=== PATIENT | male | born 1955 | race Caucasian/White ===

== ENCOUNTER 2022-01-24 07:47 | Outpatient (REF) | payer MEDICARE, SELFPAY ==
[2022-01-24 11:14] LABS: MANUAL DIFF FLAG NO
[2022-01-24 11:21] LABS: Appearance Urine Clear; Color Urine Yellow; Glucose Urine UA Negative (Negative); Leukocyte Esterase Urine Negative (Negative); Nitrite Urine Negative (Negative); Urine Blood Negative (Negative); Urine Ketones Negative (Negative); Urine Protein Negative (Neg-Trace)
[2022-01-24 11:29] LABS: Basophils Percent Auto 0.4 % (0-2); Eosinophils Absolute Auto 0.1 X10*3/uL (0.0-0.4); Eosinophils Percent Auto 1.2 % (0-4); Hematocrit 41.1 % (42.0-52.0); Hemoglobin 14.1 g/dl (14.0-18.0); Imm Gran Abs Auto 0.01 X10*3/uL (0.00-0.03); Imm Gran Pct Auto 0.2 % (0.0-0.4); Lymphocytes Percent Auto 40.3 % (20-40); Mean Corpuscular HGB Conc 34.3 g/dl (31.0-36.0); Mean Corpuscular Hemoglobin 31.3 pg (27.0-33.0); Mean Corpuscular Volume 91.3 fL (80.0-98.0); Mean Platelet Volume 9.3 fL (9.4-12.4); Monocytes Absolute Auto 0.5 X10*3/uL (0.1-1.2); Neutrophils Absolute Auto 2.4 x10*3/uL (2.0-8.3); Neutrophils Percent Auto 47.9 % (45-73); Platelet Count 236 X10*3/uL (160-400); Red Cell Distribution Width 12.5 % (11.0-16.0)
[2022-01-24 11:59] LABS: Creatinine Urine 65.45 mg/dL; Microalbum/Creatinine Ratio Ur 22.9 ug/mg cr
[2022-01-24 12:03] LABS: Alanine Aminotransferase 18 U/L (0-40); Albumin Level 4.2 g/dL (3.5-5.0); Alkaline Phosphatase 48 U/L (39-117); Anion Gap 14 (12-20); Aspartate Amino Transferase 23 U/L (5-37); Bilirubin Total 0.7 mg/dL (0.0-1.0); Blood Urea Nitrogen 11 mg/dL (9-16); Carbon Dioxide 29 mmol/L (22-29); Chloride 102 mmol/L (96-108); Cholesterol 155 mg/dL; Estimated Glomerular Filt Rate > 60; Glucose Fasting 96 mg/dL (60-99); HDL Cholesterol 70 mg/dL; LDL Cholesterol Calculated 70 mg/dl; Potassium 4.6 mmol/L (3.3-5.1); Sodium 140 mmol/L (135-145); Total Protein 6.6 g/dL (6.5-8.0); Triglycerides 78 mg/dL
[2022-01-24 12:46] LABS: Prostate Specific Antigen Scr 6.93 ng/mL (<0.05-4.0)
== END 2022-01-24 07:48 | disposition home or self-care (01) ==
LOC: HO.WFDLDS 07:47
PROVIDERS: Visit Provider Family Medicine
DX: Z00.00 Encounter for general adult medical examination without abnormal findings (principal); I10 Essential (primary) hypertension; Z13.220 Encounter for screening for lipoid disorders; Z13.29 Encounter for screening for other suspected endocrine disorder; Z12.5 Encounter for screening for malignant neoplasm of prostate
CPT/HCPCS: 36415; 80053; 80061; 81003; 82043; 84153; 84443; 85025

== ENCOUNTER 2022-02-07 10:41 | Outpatient (REF) | payer MEDICARE, SELFPAY ==
[2022-02-07 13:48] LABS: MANUAL DIFF FLAG NO
[2022-02-07 14:02] LABS: Basophils Percent Auto 0.2 % (0-2); Eosinophils Absolute Auto 0.1 X10*3/uL (0.0-0.4); Eosinophils Percent Auto 1.6 % (0-4); Hematocrit 41.3 % (42.0-52.0); Hemoglobin 13.8 g/dl (14.0-18.0); Imm Gran Abs Auto 0.01 X10*3/uL (0.00-0.03); Imm Gran Pct Auto 0.2 % (0.0-0.4); Lymphocytes Absolute Auto 1.6 X10*3/uL (1.2-4.9); Lymphocytes Percent Auto 25.8 % (20-40); Mean Corpuscular HGB Conc 33.4 g/dl (31.0-36.0); Mean Corpuscular Hemoglobin 30.5 pg (27.0-33.0); Mean Corpuscular Volume 91.2 fL (80.0-98.0); Monocytes Absolute Auto 0.5 X10*3/uL (0.1-1.2); Monocytes Percent Auto 7.7 % (2-11); Neutrophils Absolute Auto 4.1 x10*3/uL (2.0-8.3); Neutrophils Percent Auto 64.5 % (45-73); Platelet Count 231 X10*3/uL (160-400); Red Blood Count 4.53 X10*6/uL (4.60-5.80); Red Cell Distribution Width 12.5 % (11.0-16.0); White Blood Count 6.3 X10*3/uL (4.8-10.8)
[2022-02-07 14:31] LABS: Iron 111 mcg/dL (45-160); Percent Iron Saturation 32 % (15-50); Total Iron Binding Capacity 350 mcg/dL (228-428); Unsaturated Iron Binding 239 ug/dL
[2022-02-07 15:24] LABS: Folate > 20.0 ng/mL (> or = 4.0); Vitamin B12 438 pg/mL (200-900)
== END 2022-02-07 10:42 | disposition home or self-care (01) ==
LOC: HO.WFDLDS 10:41
PROVIDERS: Visit Provider Family Medicine
DX: Z00.00 Encounter for general adult medical examination without abnormal findings (principal); E53.8 Deficiency of other specified B group vitamins; D64.9 Anemia, unspecified
CPT/HCPCS: 36415; 82607; 82746; 83540; 85025

== ENCOUNTER → 2022-05-25 14:52 | Outpatient (BNVA) | payer MEDICARE, SELFPAY | PROVIDERS: PCP Family Medicine; Visit Provider Urology | DX: R97.20 Elevated prostate specific antigen [PSA] (principal) | CPT/HCPCS: 99202 ==

== ENCOUNTER 2022-06-05 07:20 | Outpatient (REF) | payer MEDICARE, SELFPAY ==
[2022-06-05 11:18] LABS: MANUAL DIFF FLAG NO
[2022-06-05 11:29] LABS: Basophils Percent Auto 0.5 % (0-2); Eosinophils Absolute Auto 0.1 X10*3/uL (0.0-0.4); Eosinophils Percent Auto 1.8 % (0-4); Hemoglobin 14.3 g/dl (14.0-18.0); Imm Gran Abs Auto 0.01 X10*3/uL (0.00-0.03); Imm Gran Pct Auto 0.2 % (0.0-0.4); Immature Retic Fraction 7.8 % (2.3-13.4); Lymphocytes Absolute Auto 2.2 X10*3/uL (1.2-4.9); Lymphocytes Percent Auto 39.3 % (20-40); Mean Corpuscular Hemoglobin 31.2 pg (27.0-33.0); Mean Corpuscular Volume 91.7 fL (80.0-98.0); Mean Platelet Volume 9.3 fL (9.4-12.4); Monocytes Absolute Auto 0.5 X10*3/uL (0.1-1.2); Monocytes Percent Auto 8.3 % (2-11); Neutrophils Absolute Auto 2.8 x10*3/uL (2.0-8.3); Neutrophils Percent Auto 49.9 % (45-73); Platelet Count 223 X10*3/uL (160-400); RET ABN SCTR 1; Red Blood Count 4.58 X10*6/uL (4.60-5.80); Red Cell Distribution Width 12.7 % (11.0-16.0); Retic HGB Equivalent 36.9 pg (30.0-35.0); Reticulocytes Absolute 0.074 X10*6/uL (0.026-0.095); White Blood Count 5.6 X10*3/uL (4.8-10.8)
[2022-06-05 11:45] LABS: Iron 125 mcg/dL (45-160); Percent Iron Saturation 41 % (15-50); Total Iron Binding Capacity 307 mcg/dL (228-428); Unsaturated Iron Binding 182 ug/dL
[2022-06-05 12:29] LABS: Reticulocyte Percent 1.6 % (0.5-1.8)
== END 2022-06-05 07:21 | disposition home or self-care (01) ==
LOC: HO.WFDLDS 07:20
PROVIDERS: Visit Provider Family Medicine
DX: Z00.00 Encounter for general adult medical examination without abnormal findings (principal); D64.9 Anemia, unspecified
CPT/HCPCS: 36415; 83540; 85025; 85045

== ENCOUNTER 2022-11-07 07:20 | Outpatient (REF) | payer MEDICARE, SELFPAY ==
[2022-11-07 11:52] LABS: PSA,Total (Free>4and<10) 2.26 ng/mL (0.00-4.00)
== END 2022-11-07 07:21 | disposition home or self-care (01) ==
LOC: HO.WFDLDS 07:20
PROVIDERS: Visit Provider Urology
DX: Z12.5 Encounter for screening for malignant neoplasm of prostate (principal); R97.20 Elevated prostate specific antigen [PSA]
CPT/HCPCS: 36415; 84153

== ENCOUNTER 2022-11-27 09:24 | Outpatient (AMB) | payer MEDICARE, SELFPAY ==
--- NOTE | 2022-11-27 09:29 | MHC.OFFVIS ---
Intake Intake Visit Reasons: 6M PSA(set) Intake Note: Patient is present for Follow Up PSA Urology Med: Finasteride (Patient requests refill) Antibiotic Allergy:None Blood Thinner: None Pharmacy: [facility] Allergies latex Allergy (Intermediate, Verified 11/27/22 09:30) Itching morphine Allergy (Intermediate, Verified 11/27/22 09:30) altered mental states Seasonal Allergies Allergy (Mild, Verified 11/27/22 09:30) Runny Nose HPI HPI Comments History of Present Illness Details Julio Cesar is a pleasant male. He is a patient of Dr. Laboy. 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 PSA 02/03 7.0, 11/04 2.3 MAYKEL 3+ prostate soft 6 month follow-up [facility] Surgical History History of prostate biopsy History of skin graft Family History Mother Dementia Mental health disorder Social History Housing: House Alcohol intake: current Alcohol intake frequency: a few times a week Patient Tobacco Use Status: Former Tobacco user Quit Date: 1988 e-Cigarette/Vaping Use: Never Used Second Hand Smoke Exposure: No service: No Current occupational status: retired Current occupational exposures/hazards: No Cognitive needs: No Hearing needs: No Vision needs: Yes (reading glasses) Review of Systems Const Denies chills and Denies fever(s) Card Reports no additional complaints and Denies syncope Resp Denies cough GI Denies abdominal pain and Denies heartburn Reports as per HPI and Denies change in libido Neuro Denies syncope Psych Denies change in libido Endo Denies change in libido Physical Exam Const General: cooperative, healthy appearing, comfortable and no acute distress Orientation/consciousness: patient oriented x3 HEENT Face and sinus: Yes normal facial exam Mouth: moist mucous membranes Neck Neck: Yes normal visual inspection, Yes full ROM and Yes trachea midline Chest Chest palpation & inspection: normal inspection of the chest Resp Effort & Inspection: normal respiratory effort, able to speak in complete sentences and no respiratory distress GI Inspection: Yes normal to inspection Back/Spine/Pelvis Cervical Spine: normal cervical lordosis Thoracic/Lumbar Spine: thoracic and lumbar spine normal to inspection Skin General skin exam: no rashes or lesions noted Neuro General: patient oriented x3, gait normal, tone normal and moves all extremities Extrem General: Yes normal to inspection and Yes capillary refill normal Assessment & Plan Assessment & Plan (1) Elevated PSA: Comment: Prior biopsy Code(s): R97.20 - Elevated prostate specific antigen [PSA] (2) History of prostate biopsy: Comment: 4x Code(s): Z98.890 - Other specified postprocedural states (3) Bladder outlet obstruction: Code(s): N32.0 - Bladder-neck obstruction Plan Six month follow-up PSA Orders: Orders Prostate Specific Antigen 6 Months R97.20 - Elevated prostate specific antigen [PSA] Patient Instructions: Imaging studies, laboratory and physical exam results were discussed and reviewed in detail. No major barriers to patient understanding were identified. An opportunity to ask questions regarding the treatment plan was provided. All questions were answered. The patient expressed understanding and agreement with the above treatment plan. The patient is aware they should contact our office by phone for worsening of their current condition or the appearance of new urologic symptoms. Compliance is encouraged with any medications and followup testing that is ordered. It is a privilege to participate in the urologic care of your patient. If you have any questions or concerns regarding treatment for the above conditions, or other urologic issues, please do not hesitate to contact me. The office telephone contact is [phone]. This note is constructed using voice recognition software. While every effort has been made to ensure accuracy vice president of development errors may have been included. Yours sincerely, Dr Javed Ford MD, LEEANN [facility] - Urology Providers of Expert, Compassionate Care for the Genitourinary System Coding Level of Care Code Est Pt Level 3 (23794) Diagnoses Elevated PSA R97.20 History of prostate biopsy Z98.890 Bladder outlet obstruction N32.0
== END 2022-11-27 10:18 | disposition home or self-care (01) ==
PROVIDERS: Visit Provider Urology
DX: R97.20 Elevated prostate specific antigen [PSA] (principal); Z98.890 Other specified postprocedural states; N32.0 Bladder-neck obstruction
CPT/HCPCS: 99213

== ENCOUNTER → 2022-11-27 09:24 | Outpatient (BNVA) | payer MEDICARE, SELFPAY | PROVIDERS: Visit Provider Urology | DX: R97.20 Elevated prostate specific antigen [PSA] (principal); N32.0 Bladder-neck obstruction | CPT/HCPCS: 99212 ==

== ENCOUNTER 2023-01-31 08:08 | Outpatient (REF) | payer MEDICARE, SELFPAY ==
[2023-01-31 11:11] LABS: MANUAL DIFF FLAG NO
[2023-01-31 11:25] LABS: Basophils Percent Auto 0.5 % (0-2); Eosinophils Absolute Auto 0.2 X10*3/uL (0.0-0.4); Eosinophils Percent Auto 4.1 % (0-4); Hematocrit 40.9 % (42.0-52.0); Hemoglobin 13.9 g/dl (14.0-18.0); Imm Gran Abs Auto 0.02 X10*3/uL (0.00-0.03); Imm Gran Pct Auto 0.4 % (0.0-0.4); Lymphocytes Percent Auto 34.9 % (20-40); Mean Corpuscular Hemoglobin 31.5 pg (27.0-33.0); Mean Corpuscular Volume 92.7 fL (80.0-98.0); Mean Platelet Volume 9.7 fL (9.4-12.4); Monocytes Absolute Auto 0.6 X10*3/uL (0.1-1.2); Monocytes Percent Auto 10.9 % (2-11); Neutrophils Absolute Auto 2.8 x10*3/uL (2.0-8.3); Neutrophils Percent Auto 49.2 % (45-73); Platelet Count 225 X10*3/uL (160-400); Red Blood Count 4.41 X10*6/uL (4.60-5.80); Red Cell Distribution Width 12.6 % (11.0-16.0); White Blood Count 5.6 X10*3/uL (4.8-10.8)
[2023-01-31 12:25] LABS: Prostate Specific Antigen Scr 2.18 ng/mL (<0.05-4.0)
[2023-01-31 12:35] LABS: Anion Gap 11 (12-20)
[2023-01-31 12:40] LABS: Alanine Aminotransferase 23 U/L (0-40); Alkaline Phosphatase 47 U/L (39-117); Aspartate Amino Transferase 26 U/L (5-37); Bilirubin Total 0.6 mg/dL (0.0-1.0); Blood Urea Nitrogen 14 mg/dL (9-16); Calcium 9.2 mg/dL (8.4-10.2); Carbon Dioxide 27 mmol/L (22-29); Chloride 103 mmol/L (96-108); Cholesterol 165 mg/dL (<200); Estimated Glomerular Filt Rate > 60; Glucose Fasting 89 mg/dL (60-99); HDL Cholesterol 72 mg/dL (>40); LDL Cholesterol Calculated 82 mg/dL (<100); Potassium 4.3 mmol/L (3.3-5.1); Sodium 137 mmol/L (135-145); Total Protein 6.8 g/dL (6.5-8.0); Triglycerides 58 mg/dL (<150)
[2023-01-31 15:01] LABS: Creatinine Urine 50.58 mg/dL; Microalbum/Creatinine Ratio Ur 19.7 ug/mg cr (<30)
== END 2023-01-31 08:09 | disposition home or self-care (01) ==
LOC: HO.WFDLDS 08:08
PROVIDERS: Visit Provider Family Medicine
DX: Z00.00 Encounter for general adult medical examination without abnormal findings (principal); Z12.5 Encounter for screening for malignant neoplasm of prostate; I10 Essential (primary) hypertension
CPT/HCPCS: 36415; 80053; 80061; 81003; 82043; 82570; 84153; 84443; 85025

== ENCOUNTER 2023-02-12 08:48 | Outpatient (AMB) | payer MEDICARE, SELFPAY ==
[2023-02-12 08:52] VITALS: BP 138/78; PULSE 69; RESP 13; TEMP 37.1; O2SAT 100; BMI 28.0
--- NOTE | 2023-02-12 08:52 | A.OFFPC_ITS ---
Vital Signs 02/12/23 08:52 Height 5 ft 10 in Weight 195 lb 2 oz BMI 28.0 BP 138/78 Blood Pressure Location Lt brachial Position Sitting Respiration 13 Pulse 69 Pulse Source Pulse Oximeter Temp 98.7 F Temp Source Oral Pulse Oximetry (%) 100 Oxygen Delivery Method Room Air Intake Visit Reasons: Extended exam with f/u labs and health maint. Intake Note: Patient is here for an extended exam and shares he has no concerns at this time. Soot Blower Required: No Accompanied by: Self / Same As Patient Allergies latex Allergy (Intermediate, Verified 02/12/23 08:57) Itching morphine Allergy (Intermediate, Verified 02/12/23 08:57) altered mental states Seasonal Allergies Allergy (Mild, Verified 02/12/23 08:57) Runny Nose Tobacco use date assessed: 02/12/23 Fall risk assessment: No Falls in past year Last assessed Fall Risk: 02/12/23 Dental Screening Dental Screen Date: 02/12/23 Did you have a dental visit in the last 12 months?: Yes Did you have a dental problem in the last 6 months where you did not have access to dental care?: No Was dental information given to patient?: Patient has dentist HPI Extended exam with f/u labs and health maint. HPI Details 67 y/o male presents for an extended exa m with f/u labs and health maintenance. Labs were drawn 01/31/23. Reviewed labs with pt. Mild anemia. Triglycerides 58. TC 165. LDL 82. HDL 72. He reports last colonoscopy 2014. HPI Comments History of Present Illness Details Documentation assistance for Aramis Laboy MD, was provided by Nic Masters,?Railway Signalling Engineer on 02/12/2023 9:11 AM HERNANDEZ. Ramiro, Dr. Laboy, have read, observed, and verified documentation.? [facility] Surgical History History of prostate biopsy History of skin graft Family History Mother Dementia Mental health disorder Social History Housing: House Alcohol intake: current Alcohol intake frequency: a few times a week Patient Tobacco Use Status: Former Tobacco user Quit Date: 1988 e-Cigarette/Vaping Use: Never Used Second Hand Smoke Exposure: No service: No Current occupational status: retired Current occupational exposures/hazards: No Cognitive needs: No Hearing needs: No Vision needs: Yes (reading glasses) Questionnaire Thrive Questionnaire Date Thrive assessed: 12/04/21 RAMY-7 AMB Questionnaire RAMY-7 Date RAMY - 7 assessed: 02/07/22 Source: Developed by Drs. Jay Madden, Zoraida Pascual, Ramon Doshi and colleagues, with an educational jean-claude from [employer]. Review of Systems Const Denies chills, Denies fatigue, Denies fever(s), Denies headache(s) and Denies weakness Eyes Denies change in vision ENT Denies dizziness, Denies headache(s), Denies hearing loss, Denies nasal congestion, Denies sinus pain, Denies sinus pressure and Denies sore throat Card Denies chest pain, Denies lightheadedness, Denies dyspnea and Denies other (palpitations) Resp Denies cough, Denies dyspnea and Denies wheezing GI Denies abdominal pain, Denies melena, Denies hematochezia, Denies change in bowel habits, Denies dyspepsia and Denies nausea Denies hematuria and Denies dysuria Musc Denies abnormal gait, Denies myalgias, Denies arthralgias, Denies numbness and Denies tingling Skin/Breast Denies rash, Denies unusual bruising and Denies wounds Neuro Denies abnormal gait, Denies dizziness, Denies headache(s), Denies memory loss, Denies numbness, Denies Sensory deficit (Neuro), Denies tingling and Denies weakness Psych Denies anxiety, Denies depression and Denies memory loss Endo Denies cold intolerance, Denies fatigue, Denies heat intolerance, Denies polydipsia and Denies polyuria Stefano/Lymph Denies easy bleeding and Denies easy bruising Aller/Immun Denies wheezing Physical exam (Primary Care) Vital Signs: Last Vital Signs Temp 98.7 F 02/12/23 08:52 Pulse 69 02/12/23 08:52 Resp 13 02/12/23 08:52 BP 138/78 02/12/23 08:52 Pulse Ox 100 02/12/23 08:52 Oxygen Delivery Method Room Air 02/12/23 08:52 BMI result Body Mass Index 28.0 Tobacco/Smoking Status: Tobacco use Status Tobacco use date assessed 02/12/23 02/12/23 08:58 Patient Tobacco Use Status Former Tobacco user 02/12/23 08:58 e-Cigarette/Vaping Use Never Used 02/12/23 08:58 Thrive Assessment: Date of Thrive Assessment Date Thrive assessed 12/04/21 02/12/23 08:58 Const General: no acute distress, well developed, alert and awake Nutritional Appearance: well nourished Orientation/consciousness: patient oriented x3 HENMT Head: Yes normocephalic and Yes atraumatic Ears: hearing grossly normal bilaterally and TM's normal bilaterally General nose exam: Normal external nose present and Normal nares present Mouth: Normal oral and palatal mucosa present and moist mucous membranes Teeth and gingiva: dentition normal Throat: Yes posterior oropharynx normal Eyes General: appearance normal, both eyes and all related structures Pupils: Equal, round and reactive pupils present and Pupil accommodation reflex normal EOM: EOMs intact bilaterally Neck Neck: Yes normal visual inspection, Yes no lymphadenopathy and Yes trachea midline Thyroid: Thyroid normal Carotids: no bruits Lymphatic: no lymphadenopathy noted Chest Chest palpation & inspection: normal inspection of the chest Resp Effort & Inspection: normal respiratory effort Auscultation: clear to auscultation bilaterally Cardio Rate: regular rate Rhythm: regular rhythm Heart sounds: S1 normal heart sound present, S2 normal heart sound present, no gallops, no murmurs and no rubs Bruits: no abdominal aortic bruits and no carotid bruits GI Palpation (GI): No Abdominal aortic bruit present, Soft to palpation, nontender, No hepatosplenomegaly present and No Rebound tenderness present Auscultation: normal bowel sounds General: Yes no CVA tenderness Back/Spine/Pelvis Back: no CVA tenderness Cervical Spine: cervical ROM normal and No Cervical spine tenderness Thoracic/Lumbar Spine: thoraco-lumbar ROM normal, No pain with thoraco-lumbar ROM, No thoracic spinal tenderness and No lumbar spinal tenderness Skin Lesions: no lesions Rashes: no rashes Trauma: no lacerations or abrasions Wounds: no wounds Nails: normal Neuro General: patient oriented x3 Cranial nerves: Yes Equal, round and reactive pupils present Cognition (Neuro): normal cognition Gait exam (Neuro): Normal gait present Motor exam (neuro): 5/5 motor strength present throughout Sensory Exam: No Sensory deficit (Neuro) Deep tendon reflexes (DTR's): Right patellar reflex intensity grade: 2+ and Left patellar reflex intensity grade: 2+ Extrem General: Yes normal to inspection and No edema Psych Appearance: grossly normal Affect: normal affect Attitude: cooperative Thought process: Normal thought process present Assessment and Plan Assessment & Plan (1) Pre-hypertension: Code(s): R03.0 - Elevated blood-pressure reading, without diagnosis of hypertension Plan: Elevated BP in prehypertensive range As?diet?low?in?sodium/salt.??Plenty?of?sleep,?exercise?and?weight?control (2) Mild anemia: Code(s): D64.9 - Anemia, unspecified Plan: Very?mild?anemia We?can?follow?this (3) Screening for colon cancer: Code(s): Z12.11 - Encounter for screening for malignant neoplasm of colon Plan: Patient?had?colonoscopy?at?age?59?and?was?told?to?follow-up?in?10?years Will?be?due?again?at?age?69 (4) Screening for prostate cancer: Code(s): Z12.5 - Encounter for screening for malignant neoplasm of prostate Plan: Elevated?PSA?levels?and?he?is?followed?by? Continue?to?follow-up?with?urology?as?recommended (5) Immunization counseling: Code(s): Z71.85 - Encounter for immunization safety counseling Plan: Up-to-date?with?pneumonia?shots,?RSV?and?influenza. Up-to-date?with?shingles?shot Advised?newest?COVID?shot (6) Adult general medical exam: Code(s): Z00.00 - Encounter for general adult medical examination without abnormal findings Plan: 67-year-old?male?presents?for?an?extended?exam Encouraged?healthy?diet?with?active?lifestyle?and?plenty?of?exercise Orders: Orders Comprehensive [place]. Panel Fast 11 Months Z00.00 - Encounter for general adult medical examination without abnormal findings Lipid Panel 11 Months Z00.00 - Encounter for general adult medical examination without abnormal findings TSH reflex Free T4 11 Months Z00.00 - Encounter for general adult medical examination without abnormal findings UA and rflx microscopic 11 Months Z00.00 - Encounter for general adult medical examination without abnormal findings Microalbumin, Random (w Creat) 11 Months I10 - Essential (primary) hypertension Prostate Specific Antigen Scr 11 Months Z12.5 - Encounter for screening for malignant neoplasm of prostate Complete Blood Count Auto Diff 11 Months Z00.00 - Encounter for general adult medical examination without abnormal findings Coding Level of Care Code Est Pt Level 4 (15701) Diagnoses Pre-hypertension R03.0 Mild anemia D64.9 Screening for colon cancer Z12.11 Screening for prostate cancer Z12.5 Immunization counseling Z71.85 Adult general medical exam Z00.00
== END 2023-02-12 09:19 | disposition home or self-care (01) ==
PROVIDERS: Visit Provider Family Medicine
DX: R03.0 Elevated blood-pressure reading, without diagnosis of hypertension (principal); D64.9 Anemia, unspecified; Z12.11 Encounter for screening for malignant neoplasm of colon; Z12.5 Encounter for screening for malignant neoplasm of prostate; Z71.85 Encounter for immunization safety counseling; Z00.00 Encounter for general adult medical examination without abnormal findings
CPT/HCPCS: 99214

== ENCOUNTER 2023-07-25 07:15 | Outpatient (REF) | payer MEDICARE, SELFPAY ==
[2023-07-25 12:24] LABS: Prostate Specific Antigen Scr 2.09 ng/mL (<0.05-4.0)
== END 2023-07-25 07:16 | disposition home or self-care (01) ==
LOC: HO.WFDLDS 07:15
PROVIDERS: Visit Provider Urology
DX: Z12.5 Encounter for screening for malignant neoplasm of prostate (principal)
CPT/HCPCS: 36415; 84153

== ENCOUNTER 2023-08-01 09:25 | Outpatient (AMB) | payer MEDICARE, SELFPAY ==
--- NOTE | 2023-08-01 10:10 | A.OFFVIS_ITS ---
Intake Intake Visit Reasons: 6M PSA(set) Confirmed Intake Note: Patient is Present for Follow Up Urology Medication: Finasteride Antibiotic Allergies: None Blood Thinners: None Allergies latex Allergy (Intermediate, Verified 08/01/23 10:13) Itching morphine Allergy (Intermediate, Verified 08/01/23 10:13) altered mental states Seasonal Allergies Allergy (Mild, Verified 08/01/23 10:13) Runny Nose Medication List - Last Reconciled 08/01/23 by Javed Ford MD finasteride 5 mg PO DAILY 90 days multivit,calc,tib-YP-U0-lycop 240 mcg-30 mcg- 300 mcg (One-A-Day Men's Complete) 1 tab PO DAILY HPI HPI Comments History of Present Illness Details Julio Cesar is a pleasant male. He is a patient of Dr. Laboy. 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 PSA 02/03 7.0, 11/04 2.3, 08/06 2.1 MAYKEL 3+ prostate soft PF[facility] Surgical History History of prostate biopsy History of skin graft Family History Mother Dementia Mental health disorder Social History Housing: House Alcohol intake: current Alcohol intake frequency: a few times a week Patient Tobacco Use Status: Former Tobacco user Quit Date: 1988 e-Cigarette/Vaping Use: Never Used Second Hand Smoke Exposure: No service: No Current occupational status: retired Current occupational exposures/hazards: No Cognitive needs: No Hearing needs: No Vision needs: Yes (reading glasses) Review of Systems Const Denies chills and Denies fever(s) Card Reports no additional complaints and Denies syncope Resp Denies cough GI Denies abdominal pain and Denies heartburn Reports as per HPI and Denies change in libido Neuro Denies syncope Psych Denies change in libido Endo Denies change in libido Physical Exam Const General: cooperative, healthy appearing, comfortable and no acute distress Orientation/consciousness: patient oriented x3 HEENT Face and sinus: Yes normal facial exam Mouth: moist mucous membranes Neck Neck: Yes normal visual inspection, Yes full ROM and Yes trachea midline Chest Chest palpation & inspection: normal inspection of the chest Resp Effort & Inspection: normal respiratory effort, able to speak in complete sentences and no respiratory distress GI Inspection: Yes normal to inspection Back/Spine/Pelvis Cervical Spine: normal cervical lordosis Thoracic/Lumbar Spine: thoracic and lumbar spine normal to inspection Skin General skin exam: no rashes or lesions noted Neuro General: patient oriented x3, gait normal, tone normal and moves all extremities Extrem General: Yes normal to inspection and Yes capillary refill normal Assessment & Plan Assessment & Plan (1) Bladder outlet obstruction: Code(s): N32.0 - Bladder-neck obstruction (2) Elevated PSA: Comment: Prior biopsy Code(s): R97.20 - Elevated prostate specific antigen [PSA] Plan 12 month follow-up PSA Orders: Orders Prostate Specific Antigen Scr 07/25/23 Z12.5 - Encounter for screening for malignant neoplasm of prostate Prostate Specific Antigen 364 Days N32.0 - Bladder-neck obstruction Medications: Refilled finasteride 5 mg PO DAILY 90 days 90 tabs 2RF R97.20 - Elevated prostate specific antigen [PSA] Patient Instructions: Imaging studies, laboratory and physical exam results were discussed and reviewed in detail. No major barriers to patient understanding were identified. An opportunity to ask questions regarding the treatment plan was provided. All questions were answered. The patient expressed understanding and agreement with the above treatment plan. The patient is aware they should contact our office by phone for worsening of their current condition or the appearance of new urologic symptoms. Compliance is encouraged with any medications and followup testing that is ordered. It is a privilege to participate in the urologic care of your patient. If you have any questions or concerns regarding treatment for the above conditions, or other urologic issues, please do not hesitate to contact me. The office telephone contact is [phone]. This note is constructed using voice recognition software. While every effort has been made to ensure accuracy green inspector errors may have been included. Yours sincerely, Dr Javed Ford MD, LEEANN [facility] - Urology Providers of Expert, Compassionate Care for the Genitourinary System Coding Level of Care Code Est Pt Level 3 (92587) Diagnoses Bladder outlet obstruction N32.0 Elevated PSA R97.20
== END 2023-08-01 10:41 | disposition home or self-care (01) ==
PROVIDERS: PCP Family Medicine; Visit Provider Urology
DX: N32.0 Bladder-neck obstruction (principal); R97.20 Elevated prostate specific antigen [PSA]
CPT/HCPCS: 99213

== ENCOUNTER → 2023-08-01 09:25 | Outpatient (BNVA) | payer MEDICARE, SELFPAY | PROVIDERS: PCP Family Medicine; Visit Provider Urology | DX: N32.0 Bladder-neck obstruction (principal); R97.20 Elevated prostate specific antigen [PSA]; Z79.899 Other long term (current) drug therapy | CPT/HCPCS: 99212 ==

== ENCOUNTER 2024-02-06 08:05 | Outpatient (REF) | payer MEDICARE, SELFPAY ==
[2024-02-06 11:00] LABS: MANUAL DIFF FLAG NO
[2024-02-06 11:10] LABS: Basophils Percent Auto 0.4 % (0-2); Eosinophils Absolute Auto 0.2 X10*3/uL (0.0-0.4); Eosinophils Percent Auto 3.5 % (0-4); Hematocrit 38.9 % (42.0-52.0); Hemoglobin 13.6 g/dl (14.0-18.0); Imm Gran Abs Auto 0.02 X10*3/uL (0.00-0.03); Imm Gran Pct Auto 0.4 % (0.0-0.4); Lymphocytes Absolute Auto 1.9 X10*3/uL (1.2-4.9); Mean Corpuscular Hemoglobin 31.6 pg (27.0-33.0); Mean Corpuscular Volume 90.5 fL (80.0-98.0); Mean Platelet Volume 9.2 fL (9.4-12.4); Monocytes Absolute Auto 0.6 X10*3/uL (0.1-1.2); Monocytes Percent Auto 10.4 % (2-11); Neutrophils Percent Auto 52.3 % (45-73); Platelet Count 280 X10*3/uL (160-400); Red Cell Distribution Width 12.8 % (11.0-16.0); White Blood Count 5.7 X10*3/uL (4.8-10.8)
[2024-02-06 11:19] LABS: Appearance Urine Clear; Color Urine Yellow; Glucose Urine UA Negative (Negative); Leukocyte Esterase Urine Negative (Negative); Nitrite Urine Negative (Negative); PH 7.5 (5.0-9.0); Specific Gravity - Urine <= 1.005 (1.005-1.025); Urine Blood Negative (Negative); Urine Ketones Negative (Negative); Urine Protein Negative (Neg-Trace)
[2024-02-06 11:46] LABS: Alanine Aminotransferase 22 U/L (0-40); Albumin Level 3.9 g/dL (3.5-5.0); Alkaline Phosphatase 49 U/L (39-117); Anion Gap 9 (12-20); Aspartate Amino Transferase 31 U/L (5-37); Bilirubin Total 0.5 mg/dL (0.0-1.0); Blood Urea Nitrogen 14 mg/dL (9-16); Calcium 9.4 mg/dL (8.4-10.2); Carbon Dioxide 29 mmol/L (22-29); Chloride 105 mmol/L (96-108); Cholesterol 173 mg/dL (<200); Estimated Glomerular Filt Rate > 60; Glucose Fasting 98 mg/dL (60-99); HDL Cholesterol 70 mg/dL (>40); LDL Cholesterol Calculated 94 mg/dL (<100); Potassium 4.4 mmol/L (3.3-5.1); Sodium 139 mmol/L (135-145); Total Protein 6.6 g/dL (6.5-8.0); Triglycerides 46 mg/dL (<150)
[2024-02-06 11:49] LABS: TSH reflex Free T4 1.04 uIU/mL (0.32-4.0)
[2024-02-06 11:56] LABS: Creatinine Urine 31.69 mg/dL; Microalbumin Urine < 5.0 mg/L
== END 2024-02-06 08:06 | disposition home or self-care (01) ==
LOC: HO.WFDLDS 08:05
PROVIDERS: Visit Provider Family Medicine
DX: Z00.00 Encounter for general adult medical examination without abnormal findings (principal); I10 Essential (primary) hypertension
CPT/HCPCS: 36415; 80053; 80061; 81003; 82570; 84443; 85025

== ENCOUNTER 2024-02-14 08:29 | Outpatient (AMB) | payer MEDICARE, SELFPAY ==
--- NOTE | 2024-02-14 08:36 | MHC.PC.OV ---
Vital Signs 02/14/24 08:38 02/14/24 08:52 Height 5 ft 11 in Weight 195 lb 4 oz BMI 27.2 BP 172/72 H 136/64 Blood Pressure Location Lt brachial Lt brachial Position Sitting Sitting Respiration 16 Pulse 72 Pulse Source Pulse Oximeter Temp 97.0 F Temp Source Temporal Artery Scan Pulse Oximetry (%) 100 Oxygen Delivery Method Room Air Intake Visit Reasons: Extended exam with f/u labs and health maint. Intake Note: extended exam Allergies latex Allergy (Intermediate, Verified 02/14/24 08:36) Itching morphine Allergy (Intermediate, Verified 02/14/24 08:36) altered mental states Seasonal Allergies Allergy (Mild, Verified 02/14/24 08:36) Runny Nose Medication List - Last Reconciled 02/14/24 by Aramis Laboy MD finasteride 5 mg PO DAILY 90 days multivit,calc,yqu-ZN-U3-lycop 240 mcg-30 mcg- 300 mcg (One-A-Day Men's Complete) 1 tab PO DAILY Tobacco use date assessed: 02/14/24 Fall risk assessment: No Falls in past year Last assessed Fall Risk: 02/14/24 Dental Screening Dental Screen Date: 02/14/24 Did you have a dental visit in the last 12 months?: Yes Did you have a dental problem in the last 6 months where you did not have access to dental care?: No Was dental information given to patient?: Patient has dentist HPI Extended exam with f/u labs and health maint. 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 He?notes?that?it?is?also?high?at?other?doctor?visits?and?dentist?visits. Patient?feels?well.??No?complaints. PFSH Surgical History History of prostate biopsy History of skin graft Family History Mother Dementia Mental health disorder Social History (Updated 02/14/24 @ 08:37 by Aron Damon [facility] Housing: House Alcohol intake: current Alcohol intake frequency: a few times a week Patient Tobacco Use Status: Former Tobacco user e-Cigarette/Vaping Use: Never Used Second Hand Smoke Exposure: No Use of substances other than those prescribed or required for medical reasons: No service: No Current occupational status: retired Current occupational exposures/hazards: No Cognitive needs: No Hearing needs: No Vision needs: Yes (reading glasses) Questionnaire PHQ-9 Over the last 2 weeks, how often have you been bothered by any of the following problems? 1. Little interest or pleasure in doing things: not at all 2. Feeling down, depressed, or hopeless: not at all 3. Trouble falling or staying asleep, or sleeping too much: not at all 4. Feeling tired or having little energy: not at all 5. Poor appetite or overeating: not at all 6. Feeling bad about yourself - or that you are a failure or have let yourself or your family down: not at all 7. Trouble concentrating on things, such as reading the newspaper or watching television: not at all 8. Moving or speaking so slowly that other people could have noticed. Or the opposite - being so fidgety or restless that you have been moving around a lot more than usual: not at all 9. Thoughts that you would be better off or of hurting yourself in some way: not at all Total score: 0 Depression Screening Interpretation: Negative Depression Screening Done: Yes 65649 - PHQ-9 Billing: Yes Source: Developed by Drs. Jay Madden, Zoraida Pascual, Ramon Doshi and colleagues, with an educational jean-claude from [employer]. Thrive Questionnaire Date Thrive assessed: 02/14/24 I am a: Patient What is your living situation today?: I have a steady place to live Within the past 12 months, did the food you bought not last and you didn't have the money to get more?: Never true Within the past 12 months, did you worry whether your food would run out before you got money to buy more?: Never true Do you have trouble paying for medicines?: No Do you have trouble getting transportation to medical appointments?: No Do you have trouble paying your heating and electricity bill?: No Do you have trouble taking care of your child, family member or friend?: No Do you have trouble with day-to-day activities such as bathing, preparing meals, shopping, managing finances, etc.?: No Are you currently unemployed and looking for a job?: No Are you interested in more education?: No Please select the resources that you would like help with: None Currently or been in a relationship where the following occur: No concerns reported THRIVE Score: 0 AUDIT C Alcohol Use Questionnaire (AUDIT-C) 1. How often do you have a drink containing alcohol?: 4 or more times a week 2. How many drinks containing alcohol do you have on a typical day when you are drinking?: 3 or 4 3. How often do you have six or more drinks on one occasion?: Monthly Total Score: 7 RAMY-7 AMB Questionnaire RAMY-7 Date RAMY - 7 assessed: 02/14/24 Feeling nervous, anxious, or on edge: 0 = Not at all Not being able to stop or control worryin = Not at all Worrying too much about different things: 0 = Not at all Trouble relaxin = Not at all Being so restless that it is hard to sit still: 0 = Not at all Becoming easily annoyed or irritable: 0 = Not at all Feeling afraid as if something awful might happen: 0 = Not at all Total RAMY-7 score (0-4 normal; 5-9 mild; 10-14 moderate; 15-21 severe): 0 Source: Developed by Drs. Jay Madden, Zoraida Pascual, Ramon Doshi and colleagues, with an educational jean-claude from [employer]. RAMY-7 Assessment Billing RAMY-7 Assessment Tool: RAMY-7 Assessment 43894 Review of Systems Const Denies chills, Denies fatigue, Denies fever(s), Denies headache(s) and Denies weakness Eyes Denies change in vision ENT Denies dizziness, Denies headache(s), Denies hearing loss, Denies nasal congestion, Denies sinus pain, Denies sinus pressure and Denies sore throat Card Denies chest pain, Denies lightheadedness, Denies dyspnea and Denies other (palpitations) Resp Denies cough, Denies dyspnea and Denies wheezing GI Denies abdominal pain, Denies melena, Denies hematochezia, Denies change in bowel habits, Denies dyspepsia and Denies nausea Denies hematuria and Denies dysuria Musc Denies abnormal gait, Denies myalgias, Denies arthralgias, Denies numbness and Denies tingling Skin/Breast Denies rash, Denies unusual bruising and Denies wounds Neuro Denies abnormal gait, Denies dizziness, Denies headache(s), Denies memory loss, Denies numbness, Denies Sensory deficit (Neuro), Denies tingling and Denies weakness Psych Denies anxiety, Denies depression and Denies memory loss Endo Denies cold intolerance, Denies fatigue, Denies heat intolerance, Denies polydipsia and Denies polyuria Stefano/Lymph Denies easy bleeding and Denies easy bruising Aller/Immun Denies wheezing Physical exam (Primary Care) Vital Signs: Last Vital Signs Temp 97.0 F 02/14/24 08:38 Pulse 72 02/14/24 08:38 Resp 16 02/14/24 08:38 BP 136/64 02/14/24 08:52 Pulse Ox 100 02/14/24 08:38 Oxygen Delivery Method Room Air 02/14/24 08:38 BMI result Body Mass Index 27.2 Tobacco/Smoking Status: Tobacco use Status Tobacco use date assessed 02/14/24 02/14/24 08:42 Patient Tobacco Use Status Former Tobacco user 02/14/24 08:42 e-Cigarette/Vaping Use Never Used 02/14/24 08:42 PHQ-9: PHQ-9 Score PHQ-9: Total score 0 02/14/24 08:52 Depression Screening Interpretation: Negative Thrive Assessment: Date of Thrive Assessment Date Thrive assessed 02/14/24 02/14/24 08:42 Currently or been in a relationship where the following occur: No concerns reported Const General: no acute distress, well developed, alert and awake Nutritional Appearance: well nourished Orientation/consciousness: patient oriented x3 [facility] Head: Yes normocephalic and Yes atraumatic Ears: hearing grossly normal bilaterally and TM's normal bilaterally General nose exam: Normal external nose present and Normal nares present Mouth: Normal oral and palatal mucosa present and moist mucous membranes Teeth and gingiva: dentition normal Throat: Yes posterior oropharynx normal Eyes Pupils: Equal, round and reactive pupils present and Pupil accommodation reflex normal EOM: EOMs intact bilaterally Neck Neck: Yes normal visual inspection, Yes no lymphadenopathy and Yes trachea midline Thyroid: Thyroid normal Carotids: no bruits Lymphatic: no lymphadenopathy noted Chest Chest palpation & inspection: normal inspection of the chest Resp Effort & Inspection: normal respiratory effort Auscultation: clear to auscultation bilaterally Cardio Rate: regular rate Rhythm: regular rhythm Heart sounds: S1 normal heart sound present, S2 normal heart sound present, no gallops, no murmurs and no rubs Bruits: no abdominal aortic bruits and no carotid bruits GI Palpation (GI): No Abdominal aortic bruit present, Soft to palpation, nontender, No hepatosplenomegaly present and No Rebound tenderness present Auscultation: normal bowel sounds General: Yes no CVA tenderness Back/Spine/Pelvis Back: no CVA tenderness Cervical Spine: cervical ROM normal and No Cervical spine tenderness Thoracic/Lumbar Spine: thoraco-lumbar ROM normal, No pain with thoraco-lumbar ROM, No thoracic spinal tenderness and No lumbar spinal tenderness Skin Lesions: no lesions Rashes: no rashes Trauma: no lacerations or abrasions Wounds: no wounds Nails: normal Neuro General: patient oriented x3, gait normal and CN's II-XI intact bilaterally Cranial nerves: Yes Equal, round and reactive pupils present Cognition (Neuro): normal cognition Gait exam (Neuro): Normal gait present Motor exam (neuro): 5/5 motor strength present throughout Sensory Exam: No Sensory deficit (Neuro) Deep tendon reflexes (DTR's): Right patellar reflex intensity grade: 2+ and Left patellar reflex intensity grade: 2+ Extrem General: Yes normal to inspection and No edema Psych Appearance: grossly normal Affect: normal affect Attitude: cooperative Thought process: Normal thought process present Coding Level of Care Code Est Pt Prev Care >65y(54123) Diagnoses Adult general medical exam Z00.00 Elevated blood pressure reading without diagnosis of hypertension R03.0 Mild anemia D64.9 Murmur R01.1 Screening for colon cancer Z12.11 Screening for prostate cancer Z12.5 Additional Codes RAMY-7 Assessment Billing - RAMY-7 Assessment Tool: RAMY-7 Assessment 59965 ([id number]) Assessment & Plan Assessment & Plan (1) Adult general medical exam: Code(s): Z00.00 - Encounter for general adult medical examination without abnormal findings Category: Medical Plan: 68-year-old?male?presents?for?complete?physical?exam Encouraged?healthy?diet?with?active?lifestyle?and?plenty?of?exercise (2) Elevated blood pressure reading without diagnosis of hypertension: Code(s): R03.0 - Elevated blood-pressure reading, without diagnosis of hypertension Category: Medical Plan: Blood?pressure?is?high?on?initial?presentation?and?decreases?significantly?with?relaxation. Still?in?prehypertensive?range?however Gave?him?a?script?for?a?blood?pressure?monitor He?will?let?me?know?if?blood?pressures?are?high?consistently Will?follow-up?in?a?few?months (3) Mild anemia: Code(s): D64.9 - Anemia, unspecified Category: Medical Plan: Very?mild, normocytic?anemia?and?other?cell?lines?are?within?normal?limits. We?can?follow?this Patient?is?asymptomatic (4) Murmur: Code(s): R01.1 - Cardiac murmur, unspecified Category: Medical Plan: Systolic?murmur?which?patient?notes?he?has?had?for?years.??Says?he?had?an?echocardiogram?at?[facility]?and?was?told?it?was?benign Requesting?records (5) Screening for colon cancer: Code(s): Z12.11 - Encounter for screening for malignant neoplasm of colon Category: Medical Plan: Patient?says?he?is?due?for?repeat?colonoscopy?in?2024. Last?colonoscopy?at?[facility].??He?would?like?to?be?referred?locally?? 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 Follow-up?with?urology?as?recommended Plan Patient?is?up-to-date?with?immunizations Medications: New blood pressure monitor Automatic, Digital. Dx: I10. Daily As directed, 999 days/lifetime 1 ea 0RF I10 - Essential (primary) hypertension blood pressure monitor Automatic, Digital. Dx: I10. Daily As directed, 999 days/lifetime 1 ea 0RF I10 - Essential (primary) hypertension
[2024-02-14 08:38] VITALS: BP 172/72; PULSE 72; RESP 16; TEMP 36.1; O2SAT 100; BMI 27.2
[2024-02-14 08:52] VITALS: BP 136/64
== END 2024-02-14 09:20 | disposition home or self-care (01) ==
LOC: HO.HMCFM 08:29
PROVIDERS: PCP Family Medicine; Visit Provider Family Medicine
DX: R03.0 Elevated blood-pressure reading, without diagnosis of hypertension (principal); D64.9 Anemia, unspecified; R01.1 Cardiac murmur, unspecified; Z12.11 Encounter for screening for malignant neoplasm of colon; Z12.5 Encounter for screening for malignant neoplasm of prostate

== ENCOUNTER → 2024-02-14 08:29 | Outpatient (BNVA) | payer MEDICARE, SELFPAY | PROVIDERS: PCP Family Medicine; Visit Provider Family Medicine | DX: R03.0 Elevated blood-pressure reading, without diagnosis of hypertension (principal); D64.9 Anemia, unspecified; R01.1 Cardiac murmur, unspecified | CPT/HCPCS: 96127; 99212 ==

== ENCOUNTER 2024-04-02 09:25 | Outpatient (AMB) | payer MEDICARE, SELFPAY ==
--- NOTE | 2024-04-02 09:35 | AM.OFFWIN_ITS ---
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 While every effort has been made to ensure accuracy, warp splitter errors may have been included. The patient is a 68 year old male who presents to the clinic today with cough, dyspnea, mild fatigue past 2 weeks. He notes that he started with an upper respiratory infection, which seems to have improved, with the exception of having some dyspnea when he is walking. He denies fever, but does report chills. He is feeling congestion in his chest and tightness. [facility] Surgical History History of prostate biopsy History of skin graft Family History Mother Dementia Mental health disorder Social History (Updated 02/14/24 @ 08:37 by Aron Damon [facility]) Housing: House Alcohol intake: current Alcohol intake frequency: a few times a week Patient Tobacco Use Status: Former Tobacco user e-Cigarette/Vaping Use: Never Used Second Hand Smoke Exposure: No service: No Current occupational status: retired Current occupational exposures/hazards: No Cognitive needs: No Hearing needs: No Vision needs: Yes (reading glasses) Review of Systems Const All systems reviewed & are unremarkable except as noted in HPI and below Physical Exam Vital Signs: Last Vital Signs Temp 97.8 F 04/02/24 09:36 Pulse 56 04/02/24 09:36 BP 144/90 H 04/02/24 09:36 Pulse Ox 96 04/02/24 09:36 Oxygen Delivery Method Room Air 04/02/24 09:36 Const General: cooperative, healthy appearing, comfortable and no acute distress Orientation/consciousness: patient oriented x3 Limitations: no limitations HEENT Head: Yes normal to inspection Ears: hearing grossly normal bilaterally, external ears normal and TM's normal bilaterally General nose exam: Normal external nose present, Normal nares present and No nasal discharge present Face and sinus: Yes normal facial exam and Yes sinuses nontender Mouth: Normal oral and palatal mucosa present and moist mucous membranes Throat: Yes tonsils normal, Yes uvula midline and Yes posterior oropharynx abnormal (Erythema) Eyes General: appearance normal, both eyes and all related structures Neck Neck: Yes normal visual inspection Resp Effort & Inspection: normal respiratory effort, able to speak in complete sentences, Actively coughing, no respiratory distress, not tachypneic, no tripod positioning and no use of accessory muscles Auscultation: diminished lung sounds on the left in the lower lung otto Cardio Jugular venous distension: no JVD Rate: regular rate Rhythm: regular rhythm Heart sounds: S1 normal heart sound present, S2 normal heart sound present, no click, no gallops, no murmurs and no rubs Skin General skin exam: no rashes or lesions noted, elasticity normal and turgor normal Neuro General: patient oriented x3 Extrem General: Yes normal to inspection and Yes no clubbing, cyanosis or edema Assessment & Plan Assessment & Plan (1) Lower respiratory infection: Code(s): J22 - Unspecified acute lower respiratory infection Plan: Given timeline since symptoms onset deferred viral swab for Covid, Influenza, and RSV. Reviewed at home support methods including hydration, humidification, vix vapor rub, sinus rinse, and otc treatment options. Physical examination concerning for pneumonia, we will treat with antimicrobial therapy. Advised patient to monitor for improvement versus any worsening. Advised follow up with worsening symptoms such as dyspnea at rest, which would require emergent evaluation. Plan See above for full details and plan. Medications: New amoxicillin-pot clavulanate 875-125 mg 1 tab PO BID 7 days 14 tabs 0RF Coding Level of Care Code Est Pt Level 3 (33874) Diagnoses Lower respiratory infection J22
[2024-04-02 09:36] VITALS: BP 144/90; PULSE 56; TEMP 36.6; O2SAT 96
== END 2024-04-02 09:58 | disposition home or self-care (01) ==
PROVIDERS: PCP Family Medicine; Visit Provider Registered Nurse
DX: J22 Unspecified acute lower respiratory infection (principal)

== ENCOUNTER → 2024-04-02 09:25 | Outpatient (BNVA) | payer MEDICARE, SELFPAY | PROVIDERS: PCP Family Medicine; Visit Provider Registered Nurse | DX: J22 Unspecified acute lower respiratory infection (principal) | CPT/HCPCS: 99212 ==

== ENCOUNTER 2024-04-21 09:28 | Outpatient (AMB) | payer MEDICARE, SELFPAY ==
[2024-04-21 10:03] VITALS: BP 142/82; PULSE 78; TEMP 37; O2SAT 99; BMI 27.1
--- NOTE | 2024-04-21 10:03 | AM.OFFWIN_ITS ---
Intake Vital Signs 04/21/24 10:03 Height 5 ft 11 in Weight 194 lb BMI 27.1 BP 142/82 H Blood Pressure Location Rt brachial Position Sitting Pulse 78 Pulse Source Pulse Oximeter Temp 98.6 F Temp Source Oral Pulse Oximetry (%) 99 Oxygen Delivery Method Room Air Intake Visit Reasons: EP Rash on upper/lower legs Intake Note: Pt is here today c/o rash lower legs and thighs Patient Tobacco Use Status: Former Tobacco user Allergies latex Allergy (Intermediate, Verified 04/21/24 10:04) Itching morphine Allergy (Intermediate, Verified 04/21/24 10:04) altered mental states Seasonal Allergies Allergy (Mild, Verified 04/21/24 10:04) Runny Nose bismuth subsalicylate [From Pepto-Bismol] Adverse Reaction (Verified 04/21/24 10:08) rash HPI HPI Comments History of Present Illness Details History of Present Illness - The patient is a 68-year-old male pres enting with an allergic reaction to Pept o-Bismol. - He experienced dizziness and sweating soon after taking Pepto-Bismol for heartburn, followed by hives two days later. - The hives are not itchy and there is n o fever present. The patient delayed taking Benadryl until seeking medical consultation. Physical Exam General: Cooperative, healthy appearing, comfortable, no acute distress and well developed Orientation: Patient oriented x3 Limitations: No limitations Head: Normal to inspection Ears: Hearing grossly normal bilaterally Nose: Normal external nose present Face and sinus: Normal facial exam Eyes: Appearance normal, both eyes and all related structures Neck: Normal visual inspection and Yes full ROM Respiratory: Normal respiratory effort and able to speak in complete sentences.2 Skin: circular raised erythematous rash on bilateral upper and lower legs, some confluent on lower legs Neuro: Patient oriented x3 Extremities: Normal to inspection PFSH Surgical History History of prostate biopsy History of skin graft Family History Mother Dementia Mental health disorder Social History (Updated 02/14/24 @ 08:37 by TOMAS Zaidi) Housing: House Alcohol intake: current Alcohol intake frequency: a few times a week Patient Tobacco Use Status: Former Tobacco user e-Cigarette/Vaping Use: Never Used Second Hand Smoke Exposure: No service: No Current occupational status: retired Current occupational exposures/hazards: No Cognitive needs: No Hearing needs: No Vision needs: Yes (reading glasses) Review of Systems Const All systems reviewed & are unremarkable except as noted in HPI and below Physical Exam Vital Signs: Last Vital Signs Temp 98.6 F 04/21/24 10:03 Pulse 78 04/21/24 10:03 BP 142/82 H 04/21/24 10:03 Pulse Ox 99 04/21/24 10:03 Oxygen Delivery Method Room Air 04/21/24 10:03 BMI result Body Mass Index 27.1 Assessment & Plan Assessment & Plan (1) Allergic dermatitis: Code(s): L23.9 - Allergic contact dermatitis, unspecified cause Plan: Plan The patient should avoid Pepto-Bismol due to a suspected allergic reaction manifested by hives, dizziness, and sweating. Use of Benadryl for managing hives was advised, with administration tailored to avoid daytime drowsiness if necessary. The hives are expected to resolve without intervention unless they w orsen, in which case, additional medical evaluation may be warranted. The patient was counseled to refrain from using Pepto-Bismol in the future to prevent recurrence of allergic symptoms. Patient was informed and verbally consented to the use of an ambient scribe for clinic note documentation during this visit. Coding Level of Care Code Est Pt Level 3 (52656) Diagnoses Allergic dermatitis L23.9
== END 2024-04-21 10:43 | disposition home or self-care (01) ==
PROVIDERS: PCP Family Medicine; Visit Provider Physician Assistant
DX: L23.9 Allergic contact dermatitis, unspecified cause (principal)

== ENCOUNTER → 2024-04-21 09:28 | Outpatient (BNVA) | payer MEDICARE, SELFPAY | PROVIDERS: PCP Family Medicine; Visit Provider Physician Assistant | DX: L23.9 Allergic contact dermatitis, unspecified cause (principal) | CPT/HCPCS: 99212 ==

== ENCOUNTER 2024-05-19 08:12 | Outpatient (AMB) | payer MEDICARE, SELFPAY ==
--- NOTE | 2024-05-19 08:14 | MHC.PC.OV ---
Vital Signs 05/19/24 08:18 Height 5 ft 11 in Weight 191 lb 2 oz BMI 26.7 BP 144/92 H Blood Pressure Location Rt brachial Position Sitting Respiration 16 Pulse 56 Pulse Source Pulse Oximeter Temp 97.3 F Temp Source Oral Pulse Oximetry (%) 95 Oxygen Delivery Method Room Air Intake Visit Reasons: F/U B/P Intake Note: parient here for follow up on BP Ship Fastener Required: No Allergies latex Allergy (Intermediate, Verified 05/19/24 08:17) Itching morphine Allergy (Intermediate, Verified 05/19/24 08:17) altered mental states Seasonal Allergies Allergy (Mild, Verified 05/19/24 08:17) Runny Nose bismuth subsalicylate [From Pepto-Bismol] Adverse Reaction (Verified 05/19/24 08:17) rash Tobacco use date assessed: 05/19/24 Fall risk assessment: No Falls in past year Last assessed Fall Risk: 05/19/24 Dental Screening Dental Screen Date: 05/19/24 Did you have a dental visit in the last 12 months?: Yes Did you have a dental problem in the last 6 months where you did not have access to dental care?: No Was dental information given to patient?: Patient has dentist HPI F/U B/P HPI Details Patient?presents?to?follow-up?hypertension. Blood?pressure?mildly?elevated?at?last?visit?and?patient?notes?that?his?blood?pressures?are?often?higher?when?he?goes?to?see?a?doctor?compared?with?when?he?has?had?it?checked?in?the?community. Got?him?a?script?for?a?blood?pressure?monitor?and?he?has?been?checking?this?at?home. Initially?systolic?blood?pressures?were?in?130s?and?140s.??Patient?begin?working?on?diet,?exercise?and?a?little?bit?weight?loss?as?well?as?watching?salt/sodium?in?his?diet. His?log?shows?that?his?systolic?blood?pressures?at?home?are consistently?in?the?1-teens and?diastolic?blood?pressures?are?in?the?70s. PFSH Surgical History History of prostate biopsy History of skin graft Family History Mother Dementia Mental health disorder Social History (Updated 02/14/24 @ 08:37 by Aron Damon [facility]) Housing: House Alcohol intake: current Alcohol intake frequency: a few times a week Patient Tobacco Use Status: Former Tobacco user e-Cigarette/Vaping Use: Never Used Second Hand Smoke Exposure: No service: No Current occupational status: retired Current occupational exposures/hazards: No Cognitive needs: No Hearing needs: No Vision needs: Yes (reading glasses) Questionnaire PHQ-9 Over the last 2 weeks, how often have you been bothered by any of the following problems? 1. Little interest or pleasure in doing things: not at all 2. Feeling down, depressed, or hopeless: not at all 3. Trouble falling or staying asleep, or sleeping too much: not at all 4. Feeling tired or having little energy: not at all 5. Poor appetite or overeating: not at all 6. Feeling bad about yourself - or that you are a failure or have let yourself or your family down: not at all 7. Trouble concentrating on things, such as reading the newspaper or watching television: not at all 8. Moving or speaking so slowly that other people could have noticed. Or the opposite - being so fidgety or restless that you have been moving around a lot more than usual: not at all 9. Thoughts that you would be better off or of hurting yourself in some way: not at all Total score: 0 Source: Developed by Drs. Jay Madden, Zoraida Pascual, Ramon Doshi and colleagues, with an educational jean-claude from [employer]. Thrive Questionnaire Date Thrive assessed: 05/12/24 I am a: Patient What is your living situation today?: I have a steady place to live Within the past 12 months, did the food you bought not last and you didn't have the money to get more?: Never true Within the past 12 months, did you worry whether your food would run out before you got money to buy more?: Never true Do you have trouble paying for medicines?: No Do you have trouble getting transportation to medical appointments?: No Do you have trouble paying your heating and electricity bill?: No Do you have trouble taking care of your child, family member or friend?: No Do you have trouble with day-to-day activities such as bathing, preparing meals, shopping, managing finances, etc.?: No Are you currently unemployed and looking for a job?: No Are you interested in more education?: No Please select the resources that you would like help with: None Currently or been in a relationship where the following occur: No concerns reported THRIVE Score: 0 AUDIT C Alcohol Use Questionnaire (AUDIT-C) 1. How often do you have a drink containing alcohol?: 4 or more times a week 2. How many drinks containing alcohol do you have on a typical day when you are drinking?: 3 or 4 3. How often do you have six or more drinks on one occasion?: Monthly Total Score: 7 RAMY-7 AMB Questionnaire RAMY-7 Date RAMY - 7 assessed: 02/14/24 Feeling nervous, anxious, or on edge: 0 = Not at all Not being able to stop or control worryin = Not at all Worrying too much about different things: 0 = Not at all Trouble relaxin = Not at all Being so restless that it is hard to sit still: 0 = Not at all Becoming easily annoyed or irritable: 0 = Not at all Feeling afraid as if something awful might happen: 0 = Not at all Total RAMY-7 score (0-4 normal; 5-9 mild; 10-14 moderate; 15-21 severe): 0 Source: Developed by Drs. Jay Madden, Zoraida Pascual, Ramon Doshi and colleagues, with an educational jean-claude from [employer]. Review of Systems Const Denies chills, Denies fatigue, Denies fever(s), Denies headache(s) and Denies weakness ENT Denies dizziness and Denies headache(s) Card Denies chest pain, Denies lightheadedness, Denies dyspnea and Denies other (Palpitations) Resp Denies cough, Denies dyspnea, Denies wheezing and Denies other ( shortness of breath) Musc Denies numbness and Denies tingling Neuro Denies dizziness, Denies headache(s), Denies numbness, Denies tingling, Denies paresthesias and Denies weakness Psych Denies anxiety and Denies depression Endo Denies fatigue Aller/Immun Denies wheezing Physical exam (Primary Care) Vital Signs: Last Vital Signs Temp 97.3 F 05/19/24 08:18 Pulse 56 05/19/24 08:18 Resp 16 05/19/24 08:18 BP 144/92 H 05/19/24 08:18 Pulse Ox 95 05/19/24 08:18 Oxygen Delivery Method Room Air 05/19/24 08:18 BMI result Body Mass Index 26.7 Tobacco/Smoking Status: Tobacco use Status Tobacco use date assessed 05/19/24 05/19/24 08:22 Patient Tobacco Use Status Former Tobacco user 05/19/24 08:22 e-Cigarette/Vaping Use Never Used 05/19/24 08:22 PHQ-9: PHQ-9 Score PHQ-9: Total score 0 05/19/24 08:22 Thrive Assessment: Date of Thrive Assessment Date Thrive assessed 05/12/24 05/19/24 08:22 Currently or been in a relationship where the following occur: No concerns reported Const General: no acute distress and well developed Nutritional Appearance: well nourished Orientation/consciousness: patient oriented x3 [facility] Head: Yes normocephalic and Yes atraumatic Eyes General: appearance normal, both eyes and all related structures Pupils: Equal, round and reactive pupils present EOM: EOMs intact bilaterally Resp Effort & Inspection: normal respiratory effort Auscultation: clear to auscultation bilaterally Cardio Rate: regular rate Rhythm: regular rhythm Heart sounds: S1 normal heart sound present, S2 normal heart sound present, no gallops, no murmurs and no rubs Neuro General: patient oriented x3 and gait normal Cranial nerves: Yes Equal, round and reactive pupils present Psych Affect: normal affect Coding Level of Care Code Est Pt Level 3 (59848) Diagnoses Elevated blood pressure reading without diagnosis of hypertension R03.0 Assessment & Plan Assessment & Plan (1) Elevated blood pressure reading without diagnosis of hypertension: Code(s): R03.0 - Elevated blood-pressure reading, without diagnosis of hypertension Category: Medical Plan: Blood?pressure?at?home?is?well?controlled.??Goal?is?less?than?140/90 Continue?working?on?a?diet?low?in?salt/sodium,?encouraged?weight?loss?and?exercise. Will?continue?to?monitor
[2024-05-19 08:18] VITALS: BP 144/92; PULSE 56; RESP 16; TEMP 36.3; O2SAT 95; BMI 26.7
== END 2024-05-19 08:52 | disposition home or self-care (01) ==
PROVIDERS: PCP Family Medicine; Visit Provider Family Medicine
DX: R03.0 Elevated blood-pressure reading, without diagnosis of hypertension (principal)

== ENCOUNTER → 2024-05-19 08:12 | Outpatient (BNVA) | payer MEDICARE, SELFPAY | PROVIDERS: PCP Family Medicine; Visit Provider Family Medicine | DX: R03.0 Elevated blood-pressure reading, without diagnosis of hypertension (principal) | CPT/HCPCS: 99212 ==

== ENCOUNTER 2024-07-16 07:32 | Outpatient (REF) | payer MEDICARE, SELFPAY ==
[2024-07-16 12:36] LABS: Prostate Specific Antigen 1.79 ng/mL (<0.05-4.0)
== END 2024-07-16 07:33 | disposition home or self-care (01) ==
LOC: HO.WFDLDS 07:32
PROVIDERS: Visit Provider Urology
DX: N32.0 Bladder-neck obstruction (principal); Z12.5 Encounter for screening for malignant neoplasm of prostate
CPT/HCPCS: 36415; 84153

== ENCOUNTER 2024-07-31 09:51 | Outpatient (AMB) | payer MEDICARE, SELFPAY ==
--- NOTE | 2024-07-31 10:12 | A.OFFVIS_ITS ---
Intake Visit Reasons: 1y/PSA/PVR Intake Note: Patient is Present for a 1 year follow up/PSA/PVR Urology Medication: Finasteride Antibiotic Allergies: None Blood Thinners: None PVR:467mL Allergies latex Allergy (Intermediate, Verified 07/31/24 10:12) Itching morphine Allergy (Intermediate, Verified 07/31/24 10:12) altered mental states Seasonal Allergies Allergy (Mild, Verified 07/31/24 10:12) Runny Nose bismuth subsalicylate [From Pepto-Bismol] Adverse Reaction (Verified 07/31/24 10:12) rash HPI Comments Details: Julio Cesar is a pleasant male. He is a patient of Dr. Laboy. He is seen for the following urologic conditions - elevated PSA Finasteride has dropped to 1.8 May cut back to every other day Twelve month follow-up Urinary Symptoms Review - Improved PSA levels from 7.0 to 1.8. - Occasional urinary dribbling, primarily at nighttime. - Utilizes Kegel exercises for urinary incontinence management. - Frequent urination observed on some mornings but not consistently. - Experienced urinary retention with a post-void residual (PVR) of 400 cc. 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 PSA 02/03 7.0, 11/04 2.3, 08/06 2.1, 08/07 1.8 MAYKEL 3+ prostate soft PFSH Surgical History History of prostate biopsy History of skin graft Family History Mother Dementia Mental health disorder Social History Housing: House Alcohol intake: current Alcohol intake frequency: a few times a week Patient Tobacco Use Status: Former Tobacco user e-Cigarette/Vaping Use: Never Used Second Hand Smoke Exposure: No service: No Current occupational status: retired Current occupational exposures/hazards: No Cognitive needs: No Hearing needs: No Vision needs: Yes (reading glasses) Review of Systems Const Denies chills and Denies fever(s) Card Reports no additional complaints and Denies syncope Resp Denies cough GI Denies abdominal pain and Denies heartburn Reports as per HPI and Denies change in libido Neuro Denies syncope Psych Denies change in libido Endo Denies change in libido Physical Exam Const General: cooperative, healthy appearing, comfortable and no acute distress Orientation/consciousness: patient oriented x3 HEENT Face and sinus: Yes normal facial exam Mouth: moist mucous membranes Neck Neck: Yes normal visual inspection, Yes full ROM and Yes trachea midline Chest Chest palpation & inspection: normal inspection of the chest Resp Effort & Inspection: normal respiratory effort, able to speak in complete sentences and no respiratory distress GI Inspection: Yes normal to inspection Back/Spine/Pelvis Cervical Spine: normal cervical lordosis Thoracic/Lumbar Spine: thoracic and lumbar spine normal to inspection Skin General skin exam: no rashes or lesions noted Neuro General: patient oriented x3, gait normal, tone normal and moves all extremities Extrem General: Yes normal to inspection and Yes capillary refill normal Office Procedures Post Void Residual Post Residual Void Post Void Residual (PVR): [id number] Void Residual by ultrasound Assessment & Plan Assessment & Plan (1) Elevated PSA: Comment: Prior biopsy Code(s): R97.20 - Elevated prostate specific antigen [PSA] Category: Medical (2) Bladder outlet obstruction: Code(s): N32.0 - Bladder-neck obstruction Category: Medical Plan 1. Urinary Incontinence Continue Kegel exercises. Use protective undergarments. 2. Elevated Prostate-Specific Antigen Maintain PSA monitoring. Adjust finasteride to alternate days. 3. Benign Prostatic Hyperplasia Maintain finasteride dose. Monitor PVR and symptomatology. Discussion Notes During today's visit, I discussed with the patient the impressive decline in his PSA level, likely attributable to the consistent use of finasteride. We agreed to continue on finasteride but adjust the dosage to every other day. The patient reports effective management of nocturnal incontinence through the use of Kegel exercises, and we have discussed the importance of continuing these exercises regularly for long-term benefits. The potential risks and benefits of continuing finasteride were reviewed, and the patient is aware of the importance of periodic PSA monitoring. I encouraged the patient to maintain the current management strategies unless there is a noticeable change in symptoms, particularly regarding urinary retention. Patient Instructions - Continue taking finasteride every other day as directed. - Keep doing Kegel exercises regularly to help manage urinary dribbling. - Monitor urination patterns and note any changes. - Use protective undergarments at night to prevent accidents. - Schedule PSA blood tests periodically to track any changes. Orders: Orders AMB Post Void Residual by ultrasound Today N32.0 - Bladder-neck obstruction Prostate Specific Antigen 12 Months N32.0 - Bladder-neck obstruction Patient Instructions: This note is constructed using voice recognition software. While every effort has been made to ensure accuracy tie tamper errors may have been included. Imaging studies, laboratory and physical exam results were discussed and reviewed in detail. No major barriers to patient understanding were identified. An opportunity to ask questions regarding the treatment plan was provided. All questions were answered. The patient expressed understanding and agreement with the above treatment plan. The patient is aware they should contact our office by phone for worsening of their current condition or the appearance of new urologic symptoms. Compliance is encouraged with any medications and followup testing that is ordered. It is a privilege to participate in the urologic care of your patient. If you have any questions or concerns regarding treatment for the above conditions, or other urologic issues, please do not hesitate to contact me. The office telephone contact is [phone]. Sincerely, Dr Javed Ford MD, [facility] - Urology Compassionate Specialist Care for the Genitourinary System Coding Level of Care Code Est Pt Level 4 (88578) Complex EM visit Add On G2211 Diagnoses Elevated PSA R97.20 Bladder outlet obstruction N32.0 CPT Codes Post Residual Void - PVR CPT Code: 68188-Uinp Void Residual by ultrasound ([id number])
== END 2024-07-31 10:44 | disposition home or self-care (01) ==
LOC: HO.HUSH 09:52
PROVIDERS: PCP Family Medicine; Visit Provider Urology
DX: R97.20 Elevated prostate specific antigen [PSA] (principal); N32.0 Bladder-neck obstruction
CPT/HCPCS: 99214; G2211

== ENCOUNTER → 2024-07-31 09:51 | Outpatient (BNVA) | payer MEDICARE, SELFPAY | PROVIDERS: PCP Family Medicine; Visit Provider Urology | DX: R97.20 Elevated prostate specific antigen [PSA] (principal); N32.0 Bladder-neck obstruction | CPT/HCPCS: 51798; 99212 ==

== ENCOUNTER 2024-10-13 08:12 | Outpatient (AMB) | payer MEDICARE, SELFPAY ==
--- NOTE | 2024-10-13 08:38 | A.OFFPC_ITS ---
Vital Signs 10/13/24 08:40 Height 5 ft 11 in Weight 196 lb 2 oz BMI 27.4 BP 130/70 Blood Pressure Location Lt brachial Position Sitting Respiration 14 Pulse 64 Pulse Source Pulse Oximeter Temp 98.2 F Temp Source Oral Pulse Oximetry (%) 100 Oxygen Delivery Method Room Air Intake Visit Reasons: Follow-up?elevated?blood?pressure Intake Note: patient is scheduled to follow up for htn Pusher Operator Required: No Allergies latex Allergy (Intermediate, Verified 10/13/24 08:39) Itching morphine Allergy (Intermediate, Verified 10/13/24 08:39) altered mental states Seasonal Allergies Allergy (Mild, Verified 10/13/24 08:39) Runny Nose bismuth subsalicylate (From Pepto-Bismol) Adverse Reaction (Verified 10/13/24 08:39) rash Tobacco use date assessed: 05/19/24 Dental Screening Dental Screen Date: 05/19/24 HPI Follow-up?elevated?blood?pressure HPI Details 68 y/o male presents to f/u elevated blo od pressure. Blood pressure today 130/70, 64p. Log of BP at home shows it's well controlled with systolic pressure in the 1- teens. HPI Comments History of Present Illness Details Documentation assistance for Aramis Laboy MD, was provided by Nic Masters,? Animated Cartoons Painter on 10/12/2024 at 8:55 AM EST. I, Dr. Laboy, have read, observed, and verified documentation. ?? PFSH Surgical History History of prostate biopsy History of skin graft Family History Mother Dementia Mental health disorder Social History Housing: House Alcohol intake: current Alcohol intake frequency: a few times a week Patient Tobacco Use Status: Former Tobacco user e-Cigarette/Vaping Use: Never Used Second Hand Smoke Exposure: No service: No Current occupational status: retired Current occupational exposures/hazards: No Cognitive needs: No Hearing needs: No Vision needs: Yes (reading glasses) Questionnaire Thrive Questionnaire Date Thrive assessed: 05/12/24 I am a: Patient What is your living situation today?: I have a steady place to live Within the past 12 months, did the food you bought not last and you didn't have the money to get more?: Never true Within the past 12 months, did you worry whether your food would run out before you got money to buy more?: Never true Do you have trouble paying for medicines?: No Do you have trouble getting transportation to medical appointments?: No Do you have trouble paying your heating and electricity bill?: No Do you have trouble taking care of your child, family member or friend?: No Do you have trouble with day-to-day activities such as bathing, preparing meals, shopping, managing finances, etc.?: No Are you currently unemployed and looking for a job?: No Are you interested in more education?: No Please select the resources that you would like help with: None Currently or been in a relationship where the following occur: No concerns reported THRIVE Score: 0 RAMY-7 AMB Questionnaire RAMY-7 Date RAMY - 7 assessed: 02/14/24 Source: Developed by Drs. Jay Madden, Zoraida Pascual, Ramon Doshi and colleagues, with an educational jean-claude from [employer]. Review of Systems Const Denies chills, Denies fatigue, Denies fever(s), Denies headache(s) and Denies weakness ENT Denies dizziness and Denies headache(s) Card Denies chest pain, Denies lightheadedness, Denies dyspnea and Denies other (Palpitations) Resp Denies cough, Denies dyspnea, Denies wheezing and Denies other ( shortness of breath) Musc Denies numbness and Denies tingling Neuro Denies dizziness, Denies headache(s), Denies numbness, Denies tingling, Denies paresthesias and Denies weakness Psych Denies anxiety and Denies depression Endo Denies fatigue Aller/Immun Denies wheezing Physical exam (Primary Care) Vital Signs: Last Vital Signs Temp 98.2 F 10/13/24 08:40 Pulse 64 10/13/24 08:40 Resp 14 10/13/24 08:40 BP 130/70 10/13/24 08:40 Pulse Ox 100 10/13/24 08:40 Oxygen Delivery Method Room Air 10/13/24 08:40 BMI result Body Mass Index 27.4 Tobacco/Smoking Status: Tobacco use Status Tobacco use date assessed 05/19/24 10/13/24 08:43 Patient Tobacco Use Status Former Tobacco user 10/13/24 08:43 e-Cigarette/Vaping Use Never Used 10/13/24 08:43 Thrive Assessment: Date of Thrive Assessment Date Thrive assessed 05/12/24 10/13/24 08:43 Currently or been in a relationship where the following occur: No concerns reported Const General: no acute distress and well developed Nutritional Appearance: well nourished Orientation/consciousness: patient oriented x3 HENMT Head: Yes normocephalic and Yes atraumatic Eyes General: appearance normal, both eyes and all related structures Pupils: Equal, round and reactive pupils present EOM: EOMs intact bilaterally Resp Effort & Inspection: normal respiratory effort Auscultation: clear to auscultation bilaterally Cardio Rate: regular rate Rhythm: regular rhythm Heart sounds: S1 normal heart sound present, S2 normal heart sound present, no gallops, no murmurs and no rubs Neuro General: patient oriented x3 and gait normal Cranial nerves: Yes Equal, round and reactive pupils present Psych Affect: normal affect Coding Level of Care Code Est Pt Level 3 (70648) Diagnoses Elevated blood pressure reading without diagnosis of hypertension R03.0 White coat syndrome without diagnosis of hypertension R03.0 Bladder outlet obstruction N32.0 Assessment & Plan Assessment & Plan (1) Elevated blood pressure reading without diagnosis of hypertension: Code(s): R03.0 - Elevated blood-pressure reading, without diagnosis of hypertension Category: Medical Plan: Blood?pressure?in?office?is?elevated. Goal?is?less?than?140/90 However,?his?log?of?blood?pressures?at?home?show?that?it?is?well?controlled?with ?systolic?blood?pressures?in?the?1-teens consistently. Some?white?coat?syndrome. He?will?obtain?monitor?his?blood?pressures?at?home Watch?salt?and?sodium Encouraged?a?5?lb?weight?loss Will?continue?to?monitor (2) White coat syndrome without diagnosis of hypertension: Code(s): R03.0 - Elevated blood-pressure reading, without diagnosis of hypertension Category: Medical Plan: As?above (3) Bladder outlet obstruction: Code(s): N32.0 - Bladder-neck obstruction Category: Medical Plan: Followed?by??[facility] Currently?his?symptoms?are?well?controlled. Orders: Orders Complete Blood Count Auto Diff Today Z00.00 - Encounter for general adult medical examination without abnormal findings Lipid Panel Today Z00.00 - Encounter for general adult medical examination without abnormal findings Prostate Specific Antigen Scr Today Z12.5 - Encounter for screening for malignant neoplasm of prostate TSH reflex Free T4 Today Z00.00 - Encounter for general adult medical examination without abnormal findings UA CC w/rflx Micro + Cult Today Z00.00 - Encounter for general adult medical examination without abnormal findings Comprehensive [place]. Panel Fast Today Z00.00 - Encounter for general adult medical examination without abnormal findings Microalbumin, Random (w Creat) Today I10 - Essential (primary) hypertension
[2024-10-13 08:40] VITALS: BP 130/70; PULSE 64; RESP 14; TEMP 36.8; O2SAT 100; BMI 27.4
== END 2024-10-13 09:00 | disposition home or self-care (01) ==
LOC: HO.HMCFM 08:13
PROVIDERS: PCP Family Medicine; Visit Provider Family Medicine
DX: R03.0 Elevated blood-pressure reading, without diagnosis of hypertension (principal); N32.0 Bladder-neck obstruction

== ENCOUNTER → 2024-10-13 08:12 | Outpatient (BNVA) | payer MEDICARE, SELFPAY | PROVIDERS: PCP Family Medicine; Visit Provider Family Medicine | DX: R03.0 Elevated blood-pressure reading, without diagnosis of hypertension (principal); N32.0 Bladder-neck obstruction | CPT/HCPCS: 99212 ==

== ENCOUNTER 2025-02-04 07:50 | Outpatient (REF) | payer MEDICARE, SELFPAY ==
[2025-02-04 11:23] LABS: MANUAL DIFF FLAG NO
[2025-02-04 11:36] LABS: Appearance Urine Clear; Glucose Urine UA Negative (Negative); PH 6.5 (5.0-9.0); Specific Gravity - Urine 1.010 (1.005-1.025)
[2025-02-04 11:45] LABS: Hematocrit 39.9 % (42.0-52.0); Hemoglobin 13.3 g/dl (14.0-18.0); Imm Gran Abs Auto 0.01 X10*3/uL (0.00-0.03); Imm Gran Pct Auto 0.2 % (0.0-0.4); Lymphocytes Absolute Auto 2.0 X10*3/uL (1.2-4.9); Mean Corpuscular HGB Conc 33.3 g/dl (31.0-36.0); Mean Corpuscular Hemoglobin 31.1 pg (27.0-33.0); Mean Corpuscular Volume 93.2 fL (80.0-98.0); NRBC Abs Auto 0.000 X10*3/uL (0.0-0.012); NRBC Pct Auto 0.0 /100WBC (0.0-0.2); Platelet Count 222 X10*3/uL (160-400); Red Blood Count 4.28 X10*6/uL (4.60-5.80); White Blood Count 5.5 X10*3/uL (4.8-10.8)
[2025-02-04 11:55] LABS: Alanine Aminotransferase 20 U/L (0-40); Albumin Level 4.3 g/dL (3.5-5.0); Alkaline Phosphatase 43 U/L (39-117); Anion Gap 10 (12-20); Aspartate Amino Transferase 30 U/L (5-37); Blood Urea Nitrogen 19 mg/dL (9-16); Calcium 8.6 mg/dL (8.4-10.2); Carbon Dioxide 28 mmol/L (22-29); Chloride 103 mmol/L (96-108); Cholesterol 170 mg/dL (<200); Estimated Glomerular Filt Rate > 60; HDL Cholesterol 74 mg/dL (>40); Potassium 3.7 mmol/L (3.3-5.1); Sodium 137 mmol/L (135-145); Total Protein 6.8 g/dL (6.5-8.0); Triglycerides 49 mg/dL (<150)
[2025-02-04 12:02] LABS: Microalbum/Creatinine Ratio Ur 56.1 ug/mg cr (<30)
== END 2025-02-04 07:51 | disposition home or self-care (01) ==
LOC: HO.WFDLDS 07:50
PROVIDERS: Visit Provider Family Medicine
DX: Z00.00 Encounter for general adult medical examination without abnormal findings (principal); Z12.5 Encounter for screening for malignant neoplasm of prostate; I10 Essential (primary) hypertension
CPT/HCPCS: 36415; 80053; 80061; 81003; 82043; 82570; 84153; 84443; 85025

== ENCOUNTER 2025-02-16 11:42 | Outpatient (AMB) | payer MEDICARE, SELFPAY ==
--- NOTE | 2025-02-16 12:01 | A.OFFPC_ITS ---
Vital Signs 02/16/25 12:04 Height 5 ft 11 in Weight 188 lb BMI 26.2 BP 148/88 H Blood Pressure Location Lt brachial Position Sitting Respiration 14 Pulse 68 Pulse Source Pulse Oximeter Temp 97.7 F Temp Source Temporal Artery Scan Pulse Oximetry (%) 99 Oxygen Delivery Method Room Air Intake Visit Reasons: Extended exam with f/u labs and health maint. Intake Note: Julio Cesar presents in the office today for a follow up to his labs and health maintenance. Allergies latex Allergy (Intermediate, Verified 02/16/25 12:04) Itching morphine Allergy (Intermediate, Verified 02/16/25 12:04) altered mental states Seasonal Allergies Allergy (Mild, Verified 02/16/25 12:04) Runny Nose bismuth subsalicylate (From Pepto-Bismol) Adverse Reaction (Verified 02/16/25 12:04) rash Medication List - Last Reconciled 02/16/25 by Aramis Laboy MD blood pressure monitor Automatic, Digital. Dx: I10. Daily As directed, 999 days/lifetime finasteride 5 mg PO DAILY 90 days multivit,calc,gdw-[id number]-[id number]-lycop 240 mcg-30 mcg- 300 mcg (One-A-Day Men's Complete) 1 tab PO DAILY Tobacco use date assessed: 02/16/25 Fall risk assessment: No Falls in past year Last assessed Fall Risk: 02/16/25 Dental Screening Dental Screen Date: 02/16/25 Did you have a dental visit in the last 12 months?: Yes Did you have a dental problem in the last 6 months where you did not have access to dental care?: No Was dental information given to patient?: Patient has dentist HPI Extended exam with f/u labs and health maint. HPI Details 69 y/o male presents for an extended exa m with f/u labs and health maint. Labs drawn 02/04/25. Reviewed labs with pt. Mild anemia. Fasting glucose 104. Triglyceridse 9. TC 170. LDL 87. HDL 74. PSA 1.73. Microalb/Creat ratio 56.1. BP today 148/88, 68p. Pt had noted whitecoat syndrome. He brought his blood pressure log from home and numbers were good. HPI Comments History of Present Illness Details Documentation assistance for Aramis Laboy MD, was provided by Nic Masters,? [employer] on 02/16/2025 at 12:40 PM EST. I, Dr. Laboy, have read, observed, and verified documentation. ?? PFSH Surgical History History of prostate biopsy History of skin graft Family History Mother Dementia Mental health disorder Social History (Updated 02/16/25 @ 12:04 by Swapna Reyes [facility]) Housing: House Alcohol intake: current Alcohol intake frequency: a few times a week Patient Tobacco Use Status: Former Tobacco user e-Cigarette/Vaping Use: Never Used Second Hand Smoke Exposure: No Use of substances other than those prescribed or required for medical reasons: No service: No Current occupational status: retired Current occupational exposures/hazards: No Cognitive needs: No Hearing needs: No Vision needs: Yes (reading glasses) Questionnaire Thrive Questionnaire Date Thrive assessed: 05/12/24 I am a: Patient What is your living situation today?: I have a steady place to live Within the past 12 months, did the food you bought not last and you didn't have the money to get more?: Never true Within the past 12 months, did you worry whether your food would run out before you got money to buy more?: Never true Do you have trouble paying for medicines?: No Do you have trouble getting transportation to medical appointments?: No Do you have trouble paying your heating and electricity bill?: No Do you have trouble taking care of your child, family member or friend?: No Do you have trouble with day-to-day activities such as bathing, preparing meals, shopping, managing finances, etc.?: No Are you currently unemployed and looking for a job?: No Are you interested in more education?: No Please select the resources that you would like help with: None Currently or been in a relationship where the following occur: No concerns reported THRIVE Score: 0 RAMY-7 AMB Questionnaire RAMY-7 Date RAMY - 7 assessed: 02/14/24 Source: Developed by Drs. Jay Madden, Zoraida Pascual, Ramon Doshi and colleagues, with an educational jean-claude from [employer]. Review of Systems Const Denies chills, Denies fatigue, Denies fever(s), Denies headache(s) and Denies weakness Eyes Denies change in vision ENT Denies dizziness, Denies headache(s), Denies hearing loss, Denies nasal congestion, Denies sinus pain, Denies sinus pressure and Denies sore throat Card Denies chest pain, Denies lightheadedness, Denies dyspnea and Denies other (palpitations) Resp Denies cough, Denies dyspnea and Denies wheezing GI Denies abdominal pain, Denies melena, Denies hematochezia, Denies change in bowel habits, Denies dyspepsia and Denies nausea Denies hematuria and Denies dysuria Musc Denies abnormal gait, Denies myalgias, Denies arthralgias, Denies numbness and Denies tingling Skin/Breast Denies rash, Denies unusual bruising and Denies wounds Neuro Denies abnormal gait, Denies dizziness, Denies headache(s), Denies memory loss, Denies numbness, Denies Sensory deficit (Neuro), Denies tingling and Denies weakness Psych Denies anxiety, Denies depression and Denies memory loss Endo Denies cold intolerance, Denies fatigue, Denies heat intolerance, Denies polydipsia and Denies polyuria Stefano/Lymph Denies easy bleeding and Denies easy bruising Aller/Immun Denies wheezing Physical exam (Primary Care) Vital Signs: Last Vital Signs Temp 97.7 F 02/16/25 12:04 Pulse 68 02/16/25 12:04 Resp 14 02/16/25 12:04 BP 148/88 H 02/16/25 12:04 Pulse Ox 99 02/16/25 12:04 Oxygen Delivery Method Room Air 02/16/25 12:04 BMI result Body Mass Index 26.2 Tobacco/Smoking Status: Tobacco use Status Tobacco use date assessed 02/16/25 02/16/25 12:02 Patient Tobacco Use Status Former Tobacco user 02/16/25 12:04 e-Cigarette/Vaping Use Never Used 02/16/25 12:04 Thrive Assessment: Date of Thrive Assessment Date Thrive assessed 05/12/24 02/16/25 12:02 Currently or been in a relationship where the following occur: No concerns reported Const General: no acute distress, well developed, alert and awake Nutritional Appearance: well nourished Orientation/consciousness: patient oriented x3 HENMT Head: Yes normocephalic and Yes atraumatic Ears: hearing grossly normal bilaterally and TM's normal bilaterally General nose exam: Normal external nose present and Normal nares present Mouth: Normal oral and palatal mucosa present and moist mucous membranes Teeth and gingiva: dentition normal Throat: Yes posterior oropharynx normal Eyes General: appearance normal, both eyes and all related structures Pupils: Equal, round and reactive pupils present and Pupil accommodation reflex normal EOM: EOMs intact bilaterally Neck Neck: Yes normal visual inspection, Yes no lymphadenopathy and Yes trachea midline Thyroid: Thyroid normal Carotids: no bruits Lymphatic: no lymphadenopathy noted Chest Chest palpation & inspection: normal inspection of the chest Resp Effort & Inspection: normal respiratory effort Auscultation: clear to auscultation bilaterally Cardio Rate: regular rate Rhythm: regular rhythm Heart sounds: S1 normal heart sound present, S2 normal heart sound present, no gallops, no murmurs and no rubs Bruits: no abdominal aortic bruits and no carotid bruits GI Palpation (GI): No Abdominal aortic bruit present, Soft to palpation, nontender, No hepatosplenomegaly present and No Rebound tenderness present Auscultation: normal bowel sounds General: Yes no CVA tenderness Back/Spine/Pelvis Back: no CVA tenderness Cervical Spine: cervical ROM normal and No Cervical spine tenderness Thoracic/Lumbar Spine: thoraco-lumbar ROM normal, No pain with thoraco-lumbar ROM, No thoracic spinal tenderness and No lumbar spinal tenderness Skin Lesions: no lesions Rashes: no rashes Trauma: no lacerations or abrasions Wounds: no wounds Nails: normal Neuro General: patient oriented x3 Cranial nerves: Yes Equal, round and reactive pupils present Cognition (Neuro): normal cognition Gait exam (Neuro): Normal gait present Motor exam (neuro): 5/5 motor strength present throughout Sensory Exam: No Sensory deficit (Neuro) Deep tendon reflexes (DTR's): Right patellar reflex intensity grade: 2+ and Left patellar reflex intensity grade: 2+ Extrem General: Yes normal to inspection and No edema Psych Appearance: grossly normal Affect: normal affect Attitude: cooperative Thought process: Normal thought process present Coding Level of Care Code Est Pt Level 4 (07612) Diagnoses Mild anemia D64.9 White coat syndrome without diagnosis of hypertension R03.0 Elevated fasting glucose R73.01 Microalbuminuria R80.9 Screening for colon cancer Z12.11 Screening for prostate cancer Z12.5 Adult general medical exam Z00.00 Assessment & Plan Assessment & Plan (1) Mild anemia: Code(s): D64.9 - Anemia, unspecified Category: Medical Plan: Mild anemia Will recheck this along with additional studies to evaluate Will follow-up with patient at next visit (2) White coat syndrome without diagnosis of hypertension: Code(s): R03.0 - Elevated blood-pressure reading, without diagnosis of hypertension Category: Medical Plan: Patient notes white coat syndrome and his blood pressures at home are all within normal range. However, blood pressures are rather high here and at other locations. Does have elevated microalbumin creatinine ratio and we will recheck that. Discussed with patient we may want to use a small amount of an SARA inhibitor - see below. (3) Elevated fasting glucose: Code(s): R73.01 - Impaired fasting glucose Category: Medical Plan: Mildly elevated fasting blood sugar though this was within normal limits at prior checks Will repeat with next blood draw (4) Microalbuminuria: Code(s): R80.9 - Proteinuria, unspecified Category: Medical Plan: As above, microalbumin/creatinine ratio is elevated and patient has white coat syndrome with elevated blood pressures in the office. Will recheck this with next set of labs. We discussed that if this is still elevated we may want to use a small amount of SARA inhibitor for renal protection and this would also improve blood pressure is overall. (5) Screening for colon cancer: Code(s): Z12.11 - Encounter for screening for malignant neoplasm of colon Category: Medical Plan: Patient says he had a colonoscopy about 8 years ago. Was told follow-up in 10 years Up-to-date (6) Screening for prostate cancer: Code(s): Z12.5 - Encounter for screening for malignant neoplasm of prostate Category: Medical Plan: PSA within normal range. He is followed by Urology at [facility] [place] (7) Adult general medical exam: Code(s): Z00.00 - Encounter for general adult medical examination without abnormal findings Category: Medical Plan: 69-year-old male presents for extended exam. Encouraged healthy diet with active lifestyle and plenty of exercise Orders: Orders IRON PROFILE Today D64.9 - Anemia, unspecified Reticulocyte Count Today D64.9 - Anemia, unspecified Vitamin B12 and Folate Today D64.9 - Anemia, unspecified, E53.8 - Deficiency of other specified B group vitamins Microalbumin, Random (w Creat) Today I10 - Essential (primary) hypertension, R80.9 - Proteinuria, unspecified Hemoglobin A1c Today R73.01 - Impaired fasting glucose Complete Blood Count Auto Diff Today D64.9 - Anemia, unspecified, Z00.00 - Encounter for general adult medical examination without abnormal findings Ferritin Today D64.9 - Anemia, unspecified
[2025-02-16 12:04] VITALS: BP 148/88; PULSE 68; RESP 14; TEMP 36.5; O2SAT 99; BMI 26.2
== END 2025-02-16 12:58 | disposition home or self-care (01) ==
LOC: HO.HMCFM 11:42
PROVIDERS: PCP Family Medicine; Visit Provider Family Medicine
DX: D64.9 Anemia, unspecified (principal); R03.0 Elevated blood-pressure reading, without diagnosis of hypertension; R73.01 Impaired fasting glucose; R80.9 Proteinuria, unspecified; Z12.11 Encounter for screening for malignant neoplasm of colon; Z12.5 Encounter for screening for malignant neoplasm of prostate; Z00.00 Encounter for general adult medical examination without abnormal findings

== ENCOUNTER → 2025-02-16 11:42 | Outpatient (BNVA) | payer MEDICARE, SELFPAY | PROVIDERS: PCP Family Medicine; Visit Provider Family Medicine | DX: Z00.00 Encounter for general adult medical examination without abnormal findings (principal); D64.9 Anemia, unspecified; R03.0 Elevated blood-pressure reading, without diagnosis of hypertension; R73.01 Impaired fasting glucose; R80.9 Proteinuria, unspecified; Z87.891 Personal history of nicotine dependence | CPT/HCPCS: 99212 ==